=== PATIENT | male | born 1970 | race Caucasian/White ===

== ENCOUNTER 2020-09-13 09:15 | Outpatient (CLI) | payer OTHER, SELFPAY ==
[2020-09-13 10:31] LABS: Basophils # 0.1 10^3/uL (0.0-0.1); Basophils % 0.9 %; Eosinophils # 0.3 10^3/uL (0.0-0.8); Eosinophils % 4.3 %; Hematocrit 42.3 % (42.0-52.0); Hemoglobin 14.1 g/dL (11.7-16.6); Mean Corpuscular HGB Conc 33.3 g/dL (30.0-36.0); Mean Corpuscular Hemoglobin 30.5 pg (28.0-34.0); Mean Corpuscular Volume 91.6 fL (80-94); Mean Platelet Volume 9.7 fL (7.4-10.4); Monocytes # 0.5 10^3/uL (0.2-0.9); Monocytes % 7.8 %; Neutrophils % 52.7 %; Nucleated Red Blood Cells % 0 %; Platelet Count 234 10^3/cmm (130-400); Red Blood Count 4.62 10^6/uL (4.1-5.3); Red Cell Distribution Width 12.2 % (12.1-15.1); White Blood Count 5.9 10^3/uL (4.0-10.0)
[2020-09-13 10:55] LABS: Anion Gap 11.8 (5-19); Blood Urea Nitrogen 18 mg/dL (6-20); Carbon Dioxide 28 mmol/L (22-29); Chloride 104 mmol/L (98-107); Glomerular Filtration Rate 88.6 mL/min (90-130); Glucose 82 mg/dL (65-115); Osmolality Calculated 291 mOsm/kg (285-295); Potassium 3.8 mmol/L (3.5-5.1); Sodium 140 mmol/L (136-145)
--- NOTE | 2020-09-13 13:56 | ECG_ITS ---
[facility] ED Test Date: 2020-09-13 Pat Name: Davey Vásquez Department: Room: Gender: Male Ldr Rn: : 1970 Requested By: Margarito Smith Order Number: [id number] Tuan MD: Ani Vera M.D. Measurements Intervals North Rate: 86 P: 39 WI: 116 QRS: 53 QRSD: 89 T: 54 QT: 370 QTc: 443 Interpretive Statements SINUS RHYTHM WITH SHORT WI INTERVAL No previous ECG available for comparison Electronically Signed On 09-13-2020 14:24:10 CDT by Ani Vera M.D. [email or web address] at stone [email or web address] health [facility].[employer]/store/[id number] f
== END 2020-09-13 09:16 | disposition home or self-care (01) ==
PROVIDERS: Family Provider Emergency Medicine Emergency Medical Services; Visit Provider Specialist
DX: J32.9 Chronic sinusitis, unspecified (principal); J33.0 Polyp of nasal cavity
CPT/HCPCS: 80048; 85025; 93005

== ENCOUNTER → 2021-08-13 08:30 | Outpatient (BNVA) | payer OTHER, SELFPAY | PROVIDERS: Family Provider Emergency Medicine Emergency Medical Services; Referring Provider Emergency Medicine Emergency Medical Services; Visit Provider Orthopaedic Surgery | DX: M18.11 Unilateral primary osteoarthritis of first carpometacarpal joint, right hand (principal); S69.90XA Unspecified injury of unspecified wrist, hand and finger(s), initial encounter; X58.XXXA Exposure to other specified factors, initial encounter | CPT/HCPCS: 73130; 99202; 99203 ==

== ENCOUNTER 2023-04-22 09:22 | Emergency (ER) | payer OTHER, SELFPAY ==
[2023-04-22 09:23] VITALS: BP 158/76; PULSE 83; RESP 18; TEMP 36.3; O2SAT 96; BMI 30.7
--- NOTE | 2023-04-22 09:54 | ED_ITS ---
HPI - Back Pain/Injury General: Chief Complaint: Back Pain/Injury Stated Complaint: low back pain Time Seen by Provider: 04/22/23 09:38 Source: patient Mode of arrival: ambulatory History of Present Illness: 53-year-old male presents emergency room complaining of left-sided low back pain at times radiating to his testicle that is highly dependent on disposition. No hematuria no dysuria urgency or frequency. He has had this intermittently for the last 3 weeks he went to the [facility] today they referred him to the emergency room. No fever sweats or chills no history of nephrolithiasis. [facility] ED PFSH: Social History Smoking and tobacco/nicotine status: never used tobacco/nicotine Course Vital Signs: Vital signs: Vital Signs Temperature 97.4 F L 04/22/23 09:23 Pulse Rate 83 04/22/23 09:23 Respiratory Rate 18 04/22/23 09:23 Blood Pressure 158/76 04/22/23 09:23 Pulse Oximetry 96 04/22/23 09:23 Oxygen Delivery Me thod Room Air 04/22/23 09:23 MDM - Back Pain/Injury Medical Decision Making Patient is back pain is very positional. He does not have the typical characteristics of nephrolithiasis. He did have a small number of blood in his urine but he told this before we checked a urine he chronically has blood in his urine and has for years. He is resting comfortably can exacerbate the pains by specific movements. Discussed with Manisha that at this point I think we can discharge him home however if his pain worsens we may want to reconsider having him return in doing the CT for renal stone. He felt comfortable this and actually prefers not to go any further with the workup at this point. Will discharge him home on steroids muscle relaxer and anti-inflammatory if his symptoms persist recheck. Prior to discharge did examine his left testicle there is no evidence of epididymitis clinically. He did previously have a vasectomy some of this may just be a congestion of the vas deferens it could also be a radicular symptom from a neural impingement discussed with him if this persist he may need further evaluation through his primary care doctor Differential Diagnosis Likely lumbar radiculopathy, sciatica, strain of lumbar region, renal colic and pyelonephritis Medical Records I reviewed the patient's medical records. Labs I reviewed the patient's lab results. Laboratory Results Urine Color Yellow (Yellow) 04/22/23 09:30 Urine Appearance Clear (CLEAR) 04/22/23 09:30 Urine pH 5 (5-7) 04/22/23 09:30 Ur Specific [place] 1.030 (1.005-1.030) 04/22/23 09:30 Urine Protein Neg (Negative) 04/22/23 09:30 Urine Glucose (UA) Norm (Normal) 04/22/23 09:30 Urine Ketones Negative (Negative) 04/22/23 09:30 Urine Blood 3+ (Negative) H 04/22/23 09:30 Urine Nitrate Negative (Negative) 04/22/23 09:30 Urine Bilirubin Neg (Negative) 04/22/23 09:30 Urine Urobilinogen Norm mg/dL (Negative) 04/22/23 09:30 Ur Leukocyte Esterase Negative (Negative) 04/22/23 09:30 Urine RBC 0-4 /hpf (0-2) H 04/22/23 09:30 Urine WBC None /hpf (0-5) 04/22/23 09:30 Ur Squamous Epith Cells None /hpf (0-5) 04/22/23 09:30 Amorphous Sediment Not Reportable 04/22/23 09:30 Urine Bacteria None /hpf (NONE) 04/22/23 09:30 Urine Mucus 1+ /hpf 04/22/23 09:30 All radiology interpretation(s) finalized by discharge Discharge Plan Discharge Patient Disposition: Home Clinical Impression: Strain of lumbar region Condition: Stable Prescriptions: New tizanidine 4 mg tablet 4 mg PO Q6H PRN (Reason: muscle spasticity) Qty: 20 0RF Rx Instructions: do not exceed 3 doses per 24 hrs prednisone 20 mg tablet 20 mg PO TID Qty: 15 0RF Rx Instructions: 1 p.o. 3 times daily x3 days, 1 p.o. twice daily x2 days, 1 p.o. daily x2 days diclofenac sodium 75 mg tablet,delayed release (DR/EC) 75 mg PO Q12H PRN (Reason: pain) Qty: 20 0RF No Action nasal steriod intranasal Discharge Orders: Discharge ED (Routine); Ordered 04/22/23 Ordered By: Oscar Sheffield Referrals: Connor Mcdonald, DO [Emergency Department] - Discharge Diet: Usual diet Discharge Activity: Increase activity as tolerated Patient Instructions: Low Back Strain (ED), Lumbar Radiculopathy (ED), Opioid Safety, Pain Management Activity Restrictions/Additional Instructions: Thank you for choosing [facility] for your healthcare needs today. Please realize this is an emergency room and that we are providing you with a medical screening exam and this may not be complete and all inclusive of all the testing and or work up that you may need to determine your ailment or severity of your illness. It is very important that you follow up as instructed or that you return to the Emergency Department should you have concerns or if your condition changes or worsens in any way. Coding Level of Care Code ED Hotel [employer] Motel Manager for Yasemin Wilkinson
[2023-04-22] MEDS: orphenadrine 30 mg/mL Inj 2 mL 60 MG IVP (10:05)
[2023-04-22] MEDS: ketorolac 30 mg/mL INJ IVP (10:05)
[2023-04-22] MEDS: dexamethasone 10 mg/mL INJ IM (10:07)
[2023-04-22 11:02] LABS: Urine Appearance Clear (CLEAR); Urine Color Yellow (Yellow); pH Urine 5 (5-7)
[2023-04-22 11:03] LABS: Add Urine Microscopic? YES; Bilirubin Urine Neg (Negative); Blood Urine 3+ (Negative); Glucose Urine UA Norm (Normal); Ketones Urine Negative (Negative); Leukocyte Esterase Urine Negative (Negative); Nitrate Urine Negative (Negative); Protein Urine Neg (Negative); Urobilinogen Urine Norm (Negative)
[2023-04-22 11:08] LABS: Add Urine Culture? No; Mucus Urine 1+ /hpf; RBC Urine 0-4 /hpf (0-2)
== END 2023-04-22 13:12 | disposition home or self-care (01) ==
PROVIDERS: Emergency Provider Family Medicine
DX: S39.012A Strain of muscle, fascia and tendon of lower back, initial encounter (principal); X58.XXXA Exposure to other specified factors, initial encounter
CPT/HCPCS: 81001; 96372; 96374; 96375; 99284; J1100; J1885; J2360